=== PATIENT | female | born 1960 | race Caucasian/White ===

== ENCOUNTER 2025-07-01 08:56 | Outpatient (AMB) | payer MEDICARE, SELFPAY ==
--- NOTE | 2025-07-01 08:58 | A.OFFPC_ITS ---
Vital Signs 07/01/25 09:07 Height 5 ft 3 in Weight 147 lb 4 oz BMI 26.1 BP 132/78 Blood Pressure Location Rt brachial Position Sitting Respiration 16 Pulse 77 Pulse Source Pulse Oximeter Temp 98 F Temp Source Oral Pulse Oximetry (%) 98 Oxygen Delivery Method Room Air Intake Visit Reasons: [employer] Intake Note: [employer] Mail Agent Required: No Allergies Penicillins Allergy (Severe, Verified 07/01/25 09:03) Hives Tobacco use date assessed: 07/01/25 Fall risk assessment: No Falls in past year Last assessed Fall Risk: 07/01/25 Dental Screening Dental Screen Date: 07/01/25 Did you have a dental visit in the last 12 months?: Yes Did you have a dental problem in the last 6 months where you did not have access to dental care?: No Was dental information given to patient?: Patient has dentist HPI [employer] HPI Details Patient is a 65-year-old female who presents today to [facility]. She is transferring from [place] . She has a significant past medical history of vertigo, Neuro: has a hx of vertigo and reports having a normal MRI and went to ENT. CV: Blood pressure today in the office is Msk: Neos for bilateral OA of knees. Derm: [facility] for annual skin checks Internal [facility]: utd, 2023 but would like to go for routine exams Mammo: [facility], UTD 2024 Colonoscopy: approx 2018, due in 2027 Bone density: never had [facility] Social History (Updated 07/01/25 @ 09:07 by Rohan Gamez MA) Housing: House Alcohol intake: current Comment: 1 a month Patient Tobacco Use Status: Never used Tobacco e-Cigarette/Vaping Use: Never Used Use of substances other than those prescribed or required for medical reasons: No service: No Current occupational status: retired Current occupational exposures/hazards: No Cognitive needs: No Hearing needs: No Vision needs: No Questionnaire PHQ-9 Over the last 2 weeks, how often have you been bothered by any of the following problems? 1. Little interest or pleasure in doing things: not at all 2. Feeling down, depressed, or hopeless: not at all 3. Trouble falling or staying asleep, or sleeping too much: not at all 4. Feeling tired or having little energy: not at all 5. Poor appetite or overeating: not at all 6. Feeling bad about yourself - or that you are a failure or have let yourself or your family down: not at all 7. Trouble concentrating on things, such as reading the newspaper or watching television: not at all 8. Moving or speaking so slowly that other people could have noticed. Or the opposite - being so fidgety or restless that you have been moving around a lot more than usual: not at all 9. Thoughts that you would be better off or of hurting yourself in some way: not at all Total score: 0 Depression Screening Interpretation: Negative Depression Screening Done: Yes 56299 - PHQ-9 Billing: Yes Source: Developed by Drs. Nick Scott, Annmarie Green, Ross Mascorro and colleagues, with an educational wen from [employer]. Thrive Questionnaire I am a: Patient What is your living situation today?: I have a steady place to live Within the past 12 months, did the food you bought not last and you didn't have the money to get more?: Never true Within the past 12 months, did you worry whether your food would run out before you got money to buy more?: Never true Do you have trouble paying for medicines?: No Do you have trouble getting transportation to medical appointments?: No Do you have trouble paying your heating and electricity bill?: No Do you have trouble taking care of your child, family member or friend?: No Do you have trouble with day-to-day activities such as bathing, preparing meals, shopping, managing finances, etc.?: No Are you currently unemployed and looking for a job?: No Are you interested in more education?: No Please select the resources that you would like help with: None Currently or been in a relationship where the following occur: No concerns reported THRIVE Score: 0 AUDIT C Alcohol Use Questionnaire (AUDIT-C) 1. How often do you have a drink containing alcohol?: Monthly or less 2. How many drinks containing alcohol do you have on a typical day when you are drinking?: 1 or 2 3. How often do you have six or more drinks on one occasion?: Less than monthly Total Score: 2 TY-7 AMB Questionnaire TY-7 Date TY - 7 assessed: 07/01/25 Feeling nervous, anxious, or on edge: 3 = Nearly every day Not being able to stop or control worryin = Several days Worrying too much about different things: 1 = Several days Trouble relaxin = Several days Being so restless that it is hard to sit still: 0 = Not at all Becoming easily annoyed or irritable: 0 = Not at all Feeling afraid as if something awful might happen: 0 = Not at all Total TY-7 score (0-4 normal; 5-9 mild; 10-14 moderate; 15-21 severe): 6 Source: Developed by Drs. Nick Scott, Annmarie Green, Ross Mascorro and colleagues, with an educational wen from [employer]. TY-7 Assessment Billing TY-7 Assessment Tool: TY-7 Assessment 64653 Physical exam (Primary Care) Vital Signs: Last Vital Signs Temp 98 F 07/01/25 09:07 Pulse 77 07/01/25 09:07 Resp 16 07/01/25 09:07 BP 132/78 07/01/25 09:07 Pulse Ox 98 07/01/25 09:07 Oxygen Delivery Method Room Air 07/01/25 09:07 Tobacco/Smoking Status: Tobacco use Status Tobacco use date assessed 07/01/25 07/01/25 09:07 Patient Tobacco Use Status Never used Tobacco 07/01/25 09:07 e-Cigarette/Vaping Use Never Used 07/01/25 09:07 PHQ-9: PHQ-9 Score PHQ-9: Total score 0 07/01/25 09:16 Depression Screening Interpretation: Negative Currently or been in a relationship where the following occur: No concerns reported Const Orientation/consciousness: patient oriented x3 HENMT Ears: hearing grossly normal bilaterally General nose exam: No nasal polyps present Face and sinus: Yes sinuses nontender Mouth: Normal oral and palatal mucosa present Eyes Pupils: Equal, round and reactive pupils present EOM: EOMs intact bilaterally Neck Neck: Yes full ROM and Yes no lymphadenopathy Thyroid: Thyroid normal Lymphatic: no lymphadenopathy noted Chest Chest palpation & inspection: normal inspection of the chest Resp Auscultation: clear to auscultation bilaterally Cardio Rate: regular rate Rhythm: regular rhythm Heart sounds: S1 normal heart sound present and S2 normal heart sound present Peripheral pulses: Peripheral pulses 2+ throughout GI Other: Soft, nontender Inspection: Yes normal to inspection Palpation (GI): Soft to palpation and Other GI palpation findings present (nontender, no cva tenderness) Auscultation: normoactive bowel sounds Rectal Exam - Female: deferred General: Yes no CVA tenderness Back/Spine/Pelvis Other: Nontender Back: no CVA tenderness Skin General skin exam: no rashes or lesions noted Neuro General: patient oriented x3, gait normal and no focal motor deficits Cranial nerves: Yes Equal, round and reactive pupils present Motor exam (neuro): 5/5 motor strength present throughout Sensory Exam: double simultaneous stimulation for sensation normal Coordination: [id number] test normal and Romberg test negative Extrem General: Yes normal to inspection and Yes full ROM Psych Affect: normal affect Attitude: cooperative Thought process: Normal thought process present Thought content: Normal thought content present Insight: Good insight present (Psych) Judgement: Good judgement present (Psych) Coding Level of Care Code New Pt Prev Care >65yr (01343) Diagnoses Encounter for routine history and physical examination Z00.00 Hx of vertigo Z87.898 Additional Codes TY-7 Assessment Billing - TY-7 Assessment Tool: TY-7 Assessment 05763 ([id number]) PHQ-9 - 60758 - PHQ-9 Billing: Yes ([id number]) Assessment & Plan Assessment & Plan (1) Encounter for routine history and physical examination: Code(s): Z00.00 - Encounter for general adult medical examination without abnormal findings Plan: reviewed labs ordered bone density ordered ref litigation legal assistant ordered derm referral flu shot today (2) Hx of vertigo: Code(s): Z87.898 - Personal history of other specified conditions Category: Medical Plan: stable Orders: Orders TSH reflex Free T4 Today Z00.00 - Encounter for general adult medical examination without abnormal findings, Z87.898 - Personal history of other specified conditions Microalbumin, Random (w Creat) Today Z00.00 - Encounter for general adult medical examination without abnormal findings, Z87.898 - Personal history of other specified conditions UA CC w/rflx Micro + Cult Today R30.0 - Dysuria, Z00.00 - Encounter for general adult medical examination without abnormal findings, Z87.898 - Personal history of other specified conditions XR DEXA axial skeleton Today Z78.0 - Asymptomatic menopausal state Complete Blood Count Auto Diff Today Z00.00 - Encounter for general adult medical examination without abnormal findings, Z87.898 - Personal history of other specified conditions Comprehensive Temple. Panel Fast Today Z00.00 - Encounter for general adult medical examination without abnormal findings, Z87.898 - Personal history of other specified conditions Lipid Panel Today Z00.00 - Encounter for general adult medical examination without abnormal findings, Z87.898 - Personal history of other specified conditions Referrals Dermatology Referral Z12.83 - Encounter for screening for malignant neoplasm of skin [employer]CRETE [employer]ER Referral Z01.419 - Encounter for gynecological examination (general) (routine) without abnormal findings
[2025-07-01 09:07] VITALS: BP 132/78; PULSE 77; RESP 16; TEMP 36.6; O2SAT 98; BMI 26.1
== END 2025-07-01 09:49 | disposition home or self-care (01) ==
LOC: HO.HMCFM 08:56
PROVIDERS: PCP Physician Assistant; Visit Provider Physician Assistant
DX: Z00.00 Encounter for general adult medical examination without abnormal findings (principal); Z87.898 Personal history of other specified conditions

== ENCOUNTER 2025-07-01 08:56 | Outpatient (REF) | payer MEDICARE, SELFPAY ==
[2025-07-01 11:23] LABS: MANUAL DIFF FLAG NO
[2025-07-01 11:46] LABS: Hematocrit 41.5 % (37.0-47.0); Hemoglobin 13.7 g/dl (12.0-16.0); Imm Gran Abs Auto 0.02 X10*3/uL (0.00-0.03); Imm Gran Pct Auto 0.4 % (0.0-0.4); Lymphocytes Absolute Auto 1.7 X10*3/uL (1.2-4.9); Mean Corpuscular HGB Conc 33.0 g/dl (31.0-35.0); Mean Corpuscular Hemoglobin 31.4 pg (27.0-33.0); Mean Corpuscular Volume 95.0 fL (80.0-98.0); NRBC Abs Auto 0.000 X10*3/uL (0.0-0.012); NRBC Pct Auto 0.0 /100WBC (0.0-0.2); Platelet Count 228 X10*3/uL (160-400); Red Blood Count 4.37 X10*6/uL (4.20-5.50); White Blood Count 5.0 X10*3/uL (4.8-10.8)
[2025-07-01 12:14] LABS: Alanine Aminotransferase 33 U/L (0-31); Albumin Level 4.9 g/dL (3.5-5.0); Alkaline Phosphatase 80 U/L (39-117); Anion Gap 12 (12-20); Aspartate Amino Transferase 33 U/L (5-31); Blood Urea Nitrogen 17 mg/dL (9-16); Calcium 10.6 mg/dL (8.4-10.2); Carbon Dioxide 28 mmol/L (22-29); Chloride 108 mmol/L (96-108); Cholesterol 198 mg/dL (<200); Estimated Glomerular Filt Rate > 60; HDL Cholesterol 88 mg/dL (>40); Potassium 4.0 mmol/L (3.3-5.1); Sodium 144 mmol/L (135-145); Total Protein 7.2 g/dL (6.5-8.0); Triglycerides 71 mg/dL (<150)
[2025-07-01 14:24] LABS: Appearance Urine Clear; Glucose Urine UA Negative (Negative); PH 6.0 (5.0-9.0); Specific Gravity - Urine <= 1.005 (1.005-1.025)
== END 2025-07-01 08:57 | disposition home or self-care (01) ==
LOC: HO.WFDLDS 08:56
PROVIDERS: PCP Physician Assistant; Visit Provider Physician Assistant
DX: Z00.00 Encounter for general adult medical examination without abnormal findings (principal); R30.0 Dysuria; Z87.898 Personal history of other specified conditions
CPT/HCPCS: 36415; 80053; 80061; 81003; 82570; 84443; 85025; 96127; 99387

== ENCOUNTER 2025-08-10 08:00 | Outpatient (REF) | payer MEDICARE, SELFPAY ==
[2025-08-10 11:52] LABS: Alanine Aminotransferase 35 U/L (0-31); Albumin Level 4.4 g/dL (3.5-5.0); Alkaline Phosphatase 82 U/L (39-117); Anion Gap 11 (12-20); Aspartate Amino Transferase 33 U/L (5-31); Blood Urea Nitrogen 19 mg/dL (9-16); Calcium 9.7 mg/dL (8.4-10.2); Carbon Dioxide 27 mmol/L (22-29); Chloride 108 mmol/L (96-108); Estimated Glomerular Filt Rate > 60; Potassium 4.0 mmol/L (3.3-5.1); Sodium 142 mmol/L (135-145); Total Protein 6.7 g/dL (6.5-8.0)
[2025-08-10 12:09] LABS: Parathyroid Hormone Intact 65.9 pg/mL (8.7-77.1)
== END 2025-08-10 08:01 | disposition home or self-care (01) ==
LOC: HO.WFDLDS 08:00
PROVIDERS: Visit Provider Physician Assistant
DX: E83.52 Hypercalcemia (principal)
CPT/HCPCS: 36415; 80048; 80076; 82306; 83970

== ENCOUNTER 2025-08-19 13:15 | Outpatient (REF) | payer MEDICARE, SELFPAY ==
--- NOTE | ~2025-08-19 | MM_ITS ---
EXAMINATION: DXA BONE DENSITY AXIAL HISTORY: Z78.0 - Asymptomatic menopausal state TECHNIQUE: [employer] Dual energy absorptiometry (DEXA) of the lumbar spine, total left hip, and femoral neck was performed. COMPARISON: There are no prior studies for comparison. FINDINGS: The bone mineral density of the lumbar spine is 1.002 g/cm2, corresponding to a T-score of -1.5, and a Z-score of 0.2. This is indicative of osteopenia. The bone mineral density of the left total hip is 0.804 g/cm2, corresponding to a T-score of -1.6, and a Z-score of -0.3. This is indicative of osteopenia. The bone mineral density of the left femoral neck is 0.773 g/cm2, corresponding to a T-score of -1.9, and a Z-score of -0.4. This is indicative of osteopenia. FRACTURE RISK: The FRAX index suggests a risk of major osteoporotic fracture of 17.6%, and of hip fracture 2.7%. MM/XR DEXA axial skeleton IMPRESSION: Based on bone mineral density, and according to World Health Organization (WHO) criteria, the diagnosis is consistent with osteopenia. Statistically, 68% of repeat scans fall within 1 SD (+/- 0.010 g/cm2 for AP spine L1-L4) and 1 SD (+/- 0.012 g/cm2 for femur total) FRAX is a trademark of the [employer]'s [employer] Metabolic Bone Disease, a World Health Organization (WHO) Collaborating Center. Electronically signed by: Nick Montana MD 08/19/2025 01:51 PM [facility] [place], [place]
== END 2025-08-19 13:16 | disposition home or self-care (01) ==
LOC: HO.MAMMO 13:15
PROVIDERS: PCP Physician Assistant; Visit Provider Physician Assistant
DX: Z78.0 Asymptomatic menopausal state (principal)
CPT/HCPCS: 77080

== ENCOUNTER → 2025-08-19 13:30 | Outpatient (BNV) | payer MEDICARE, SELFPAY | PROVIDERS: PCP Physician Assistant; Visit Provider Radiology Diagnostic Radiology | DX: E28.39 Other primary ovarian failure (principal) | CPT/HCPCS: 77080 ==